=== PATIENT | male | born 1975 ===

== ENCOUNTER 2022-10-27 22:00 | Emergency (ER) | payer MEDICARE ==
[~2022-10-27] VITALS: Ht 177.8 cm; Wt 72.6 kg
[2022-10-27 22:11] VITALS: BP 128/76
[2022-10-27] MEDS ORDERED: IOHEXOL 350 MG/ML 100ML IJ ONE (22:31)
== END 2022-10-28 03:23 | disposition left against medical advice (07) ==
LOC: EDBD 22:00 → ER 22:00
DX: R53.1 Weakness (principal); R51.9 Headache, unspecified; M79.10 Myalgia, unspecified site; J44.9 Chronic obstructive pulmonary disease, unspecified; Z91.040 Latex allergy status; Z88.2 Allergy status to sulfonamides; Z88.8 Allergy status to other drugs, medicaments and biological substances
CPT/HCPCS: 99283; Q9967